=== PATIENT | male | born 1950 | race Caucasian/White ===

== ENCOUNTER 2022-08-03 09:41 | Day surgery (SDC) | payer MEDICARE, SELFPAY ==
[2022-05-21 11:49] VITALS: BMI 26.0
[2022-07-21 10:17] VITALS: BMI 26.4
--- NOTE | 2022-07-31 13:05 | P.PNAN_ITS ---
Anes - Initial Pre Proc Eval Procedure: Operation Date: 08/03/22 12:30 Proposed Procedures p Screening Colonoscopy - Mundo Langley MD Date/Time: 07/31/22 13:05 Surgeon: Mundo Langley MD Pre Op Diagnosis: Neoplasm screening Patient Data Age: 71 Gender: M Height: 1.8 m Weight: 86 kg Allergies Allergy/AdvReac Type Severity Reaction Status Date / Time No Known Allergies Allergy Verified 08/03/22 11:21 Home Medications Medication Instructions Recorded Confirmed Type amlodipine 5 mg tablet 5 mg PO DAILY 07/21/22 08/03/22 History finasteride 5 mg tablet 5 mg PO DAILY 07/21/22 08/03/22 History glucosamine-chondroitin 250 mg-200 2 tablet PO DAILY 07/21/22 08/03/22 History mg tablet (Osteo Bi-Flex) lisinopril 20 1 tablet PO DAILY 07/21/22 08/03/22 History mg-hydrochlorothiazide 12.5 mg tablet [id number] 250 mg-dha 90 2 cap PO DAILY 07/21/22 08/03/22 History mg-epa 160 tt-rjml-onje-zeax capsule (Ocuvite Adult 50 Plus) tamsulosin 0.4 mg capsule 0.4 mg PO DAILY 07/21/22 08/03/22 History tumeric 100 mg-bereket 150 mg-olive 1 cap PO DAILY 07/21/22 08/03/22 History 50 mg-oreg 150 mg-caprylate capsule Patient hx anesthesia problems: none Family hx anesthesia problems: none Results Review: All pre-operative results and documents have been reviewed as part of the pre- operative evaluation. [facility] Past Medical History Medical History (Updated 07/31/22 @ 13:05 by Darrell Queen DO) Hypertension Osteoarthritis PONV (postoperative nausea and vomiting) Family History Family History (Updated 03/08/14 @ 07:13 by DOCTOR UNKNOWN) Father Hypertension Grandparent Family history of arthritis Family history of heart disease in male family member before age 55 Sibling Family history of malignant neoplasm Social History Social History Smoking status: Never smoker Alcohol intake: current Alcohol use details: ONCE A MONTH Substance use: never Substance use type: does not use Living arrangements: with family Spiritual care concerns: No Anes - Eval Final PreProcedure Day of Procedure 07/31/22 13:05 Patient weight: overweight Heart: regular rate and rhythm Lungs: clear to auscultation Airway: Mallampati scale class II Neurological: alert and oriented Last oral intake: >/= 8 hours ASA classification: II Emergent: no Anesthetic plan: proceed Anesthesia type and monitoring: general GIVS and standard monitoring Results Review: All pre-operative results and documents have been reviewed as part of the pre- operative evaluation. Informed Consent: The patient's anesthetic plan and its attendant risks and benefits were discussed with the patient/family/POA. Questions were solicited and answers provided to the satisfaction of the patient/family/POA.
[2022-08-03 11:05] VITALS: BP 142/90; PULSE 57; RESP 20; TEMP 36.6; O2SAT 100
[2022-08-03] MEDS: LACTATED RINGERS 1,000 ML 150 ML IV CONT (11:26)
--- NOTE | 2022-08-03 11:38 | PM.HPGS ---
History of Present Illness History of Present Illness Consent: Risks, benefits, and alternatives have been discussed and questions answered. Patient agrees to proceed with procedure. Chief complaint: Neoplasm screening Narrative: Paul Renee is a 71 year old male here for screening colonoscopy, last one in 2011 Review of Systems Constitutional: Constitutional: Denies headache(s) and Denies weakness Eyes: Eyes: Denies blurry vision ENT: Reports Normal hearing present, Denies headache(s) and Denies neck pain Cardiovascular: Cardiovascular: Denies chest pain and Denies dyspnea Respiratory: Respiratory: Denies dyspnea Gastrointestinal: Gastrointestinal: Reports no additional gastrointestinal complaints Genitourinary: Genitourinary: Denies dysuria Musculoskeletal: Musculoskeletal: Denies neck pain Integumentary/Breasts: Skin/Breast: Denies dry skin Neurologic: Reports Normal hearing present, Denies headache(s) and Denies weakness Psychiatric: Psychiatric: Denies anxiety Endocrine: Endocrine: Denies change in body appearance Hematologic/Lymphatic: Hematologic/Lymphatic: Denies easy bleeding Allergic/Immunologic: Allergic/Immunologic: Denies urticaria PMFSH Past Medical History Medical History (Updated 08/03/22 @ 11:39 by Mundo Langley MD) Colon cancer screening Hypertension Osteoarthritis PONV (postoperative nausea and vomiting) Family History Family History (Updated 03/08/14 @ 07:13 by DOCTOR UNKNOWN) Father Hypertension Grandparent Family history of arthritis Family history of heart disease in male family member before age 55 Sibling Family history of malignant neoplasm Social History Social History Smoking status: Never smoker Alcohol intake: current Alcohol use details: ONCE A MONTH Substance use: never Substance use type: does not use Living arrangements: with family Spiritual care concerns: No Meds Home Medications and Allergies Home Medications Medication Instructions Recorded Confirmed Type amlodipine 5 mg tablet 5 mg PO DAILY 07/21/22 08/03/22 History finasteride 5 mg tablet 5 mg PO DAILY 07/21/22 08/03/22 History glucosamine-chondroitin 250 mg-200 2 tablet PO DAILY 07/21/22 08/03/22 History mg tablet (Osteo Bi-Flex) lisinopril 20 1 tablet PO DAILY 07/21/22 08/03/22 History mg-hydrochlorothiazide 12.5 mg tablet [id number] 250 mg-dha 90 2 cap PO DAILY 07/21/22 08/03/22 History mg-epa 160 lx-ghcy-rodb-zeax capsule (Ocuvite Adult 50 Plus) tamsulosin 0.4 mg capsule 0.4 mg PO DAILY 07/21/22 08/03/22 History tumeric 100 mg-bereket 150 mg-olive 1 cap PO DAILY 07/21/22 08/03/22 History 50 mg-oreg 150 mg-caprylate capsule Allergies Allergy/AdvReac Type Severity Reaction Status Date / Time No Known Allergies Allergy Verified 08/03/22 11:21 Vital Signs Vital Signs - 24 hr 08/03/22 11:05 Temperature 97.8 F Pulse Rate 57 L Respiratory Rate 20 Blood Pressure 142/90 H Pulse Oximetry 100 Oxygen Delivery Room Air Exam Const: General: comfortable and no acute distress HENMT: Face/Nose/Sinus: Normal nares present Eyes: General: appearance normal, both eyes and all related structures Neck: Neck: no JVD Resp: Auscultation: clear to auscultation bilaterally Cardio: Rate: regular rate Rhythm: regular rhythm GI: Inspection: non-distended GI Palp: Yes Soft to palpation Skin: General skin exam: normal color Neuro: General: gait normal Speech: normal speech Extrem: General: normal to inspection Psych: Mental Status: mental status grossly normal Assessment and Plan Assessment and plan (1) Colon cancer screening: Code(s): Z12.11 - Encounter for screening for malignant neoplasm of colon Status: Acute Assessment and Plan: colonoscopy
[2022-08-03 12:02] VITALS: BP 106/69; PULSE 58; RESP 18; O2SAT 98
[2022-08-03 12:07] VITALS: BP 116/74; PULSE 50; RESP 18; O2SAT 97
[2022-08-03 12:17] VITALS: BP 144/68; PULSE 49; RESP 18; O2SAT 99
--- NOTE | 2022-08-03 12:54 | WPDANESPN ---
Anes - Prog Note Post-Op Date/Time: 08/03/22 12:54 Cardiovascular status: normal Respiratory status: normal Airway patency: baseline Mental status: baseline Post-Op hydration status: normal Vital Signs: Last Vital Signs Temp 36.6 C 08/03/22 11:05 Pulse 49 L 08/03/22 12:17 Resp 18 08/03/22 12:17 BP 144/68 H 08/03/22 12:17 Pulse Ox 99 08/03/22 12:17 O2 Del Method Room Air 08/03/22 12:17 Pain Score (VAS): 0 I/O: Intake & Output 08/02/22 08/03/22 08/03/22 23:59 07:59 15:59 Intake Total 300 Balance 300 Post-procedural complaints: none Patient Feedback: Patient satisfied with anesthetic care. Other Findings: Patient vital signs back to baseline. Patient denies nausea and vomiting. Patient's pain under control. Patient OK for discharge.
== END 2022-08-03 12:48 | disposition home or self-care (01) ==
PROVIDERS: PCP Internal Medicine; Visit Provider Internal Medicine Gastroenterology
PROC: 0DJD8ZZ Inspection of Lower Intestinal Tract, Via Natural or Artificial Opening Endoscopic (ICD-10-PCS; CPT 45378; principal; 2022-08-03 12:30)
DX: Z12.11 Encounter for screening for malignant neoplasm of colon (principal)
CPT/HCPCS: 45378